=== PATIENT | female | born 1990 | race American Indian/Alaskan Native ===

== ENCOUNTER 2016-08-17 01:53 | Emergency (ER) | payer OTHER ==
[2016-08-17 03:00] LABS: Bacteria,Urine 1+ /HPF (Negative); Bilirubin,Urine NEG (Negative); Blood,Urine NEG (Negative); Ketones,Urine TR mg/dL (Negative); Leukocyte Esterase,Urine SM (Negative); Mucus,Urine 1+ /HPF; Nitrite,Urine NEG (Negative); Protein,Urine <15 mg/dL mg/dL (Negative); Urobilinogen,Urine < 2.0 mg/dL (<2.0)
--- NOTE | 2016-08-17 09:55 | Emergency Department Report ---
Chief Complaint: Abdominal Pain Stated Complaint: ABDOMINAL PAIN Time Seen by Provider: 08/17/16 09:53 - HPI History of Present Illness: Patient here complaining of lower abdominal pain that started yesterday. She denies any vaginal bleeding or discharge. Unknown if she is . Reports nausea without any vomiting. - ROS Review of Systems: All systems are Negative unless stated in HPI above - Exam Vital Signs: Vital Signs 08/17/16 08/17/16 02:28 06:12 Temperature 98.5 F 98.9 F Pulse Rate 89 79 Respiratory 20 18 Rate Blood Pressure 121/76 121/68 O2 Sat by Pulse 100 100 Oximetry Physical Exam: General: This is a 26-year-old female well-nourished well-developed that is nontoxic in appearance GI: Soft, nontender to palpate in all quadrants, no guarding or rebound tenderness. MSE screening note: Focused history and physical exam performed. Due to findings the following was ordered: ED Medical Decision Making - Medical Decision Making Medical decision making: Patient seen by provider in triage area. Appropriate protocol activated and patient to main ED to be seen by physician. ED Disposition for MSE Condition: Stable Instructions: Abdominal Pain (ED)
--- NOTE | 2016-08-17 11:14 | Ultrasound Report ---
TRANSABDOMINAL AND TRANSVAGINAL OBSTETRICAL ULTRASOUND:08/17/16 01:53:00 CLINICAL: Abdominal pain. LMP every 06/29/16 2 thousand seventeen FINDINGS: Transabdominal and transvaginal ultrasound demonstrated a single intrauterine gestational sac and living fetus. [place]-rump length measured 7.9 mm corresponding to a gestational age = 6 weeks, 5 days. heart rate = 121 beats/min. Normal appearance of the pole and yolk sac. Normal gestational sac. Closed cervix. No evidence of subchorionic hematoma or placental hematoma. No adnexal mass or free fluid. Normal ovaries with a dominant 2.1 cm follicle the left ovary. The right ovary measured 3.9 x 2.8 x 2.6cm. The left ovary measured 3.0 x 2.0 x 1.6cm. IMPRESSION: Single living intrauterine at 6 weeks, 5 days based on crown-rump length measurement. EDC based on ultrasound is 04/07/17. EDC based on LMP is 04/05/17.
[2016-08-17 13:29] VITALS: BP 124/74
[2016-08-17 13:40] LABS: Anion Gap 19 mmol/L; Blood Urea Nitrogen 5 mg/dL (7-17); Calcium 8.9 mg/dL (8.4-10.2); Carbon Dioxide 22 mmol/L (22-30); Glucose 131 mg/dL (65-100); Potassium 4.1 mmol/L (3.6-5.0); Sodium 134 mmol/L (137-145)
--- NOTE | 2016-08-17 19:51 | Emergency Department Report ---
Entered by KYLE HERNANDEZ, acting as scribe for YVONNE GATES PA. ED Abdominal Pain HPI - General Chief Complaint: Abdominal Pain Stated Complaint: ABDOMINAL PAIN Time Seen by Provider: 08/17/16 09:53 Source: patient Mode of arrival: Ambulatory Limitations: No Limitations - History of Present Illness Initial Comments: 26 year old A0 presents to the ED for evauatlion of cramping, non-radiating lower abdominal pain that began yesterday.She reports associated nausea and constipation but denies vomiting and diarrhea. She reports normal fluid intake but decreased appetite due to nausea. Deneis vaginal bleeding, vaginal discharge , urinary symptoms. Patient states she has no concern for STI's. MD Complaint: abdominal pain Onset/Timin -: days(s) Location: suprapubic Radiation: none Migration to: no migration Severity: moderate Severity scale (0 -10): 6 Quality: cramping Consistency: constant Improves With: nothing Worsens With: nothing Associated Symptoms: nausea, constipation. denies: vomiting, diarrhea, fever, chills, dysuria, hematuria, other (vaginal discharge, vaginal bleeding, concern for STI's) - Related Data LMP Date: 07/23/16 Previous Rx's Medication Instructions Recorded Last Taken Type Nitrofurantoin [place]/M-Cryst 100 mg PO Q12HR #14 capsule 08/17/16 Unknown Rx [Macrobid CAP] Allergies Allergy/AdvReac Type Severity Reaction Status Date / Time iodine Allergy Angioedema Verified 08/17/16 02:28 shellfish derived Allergy Angioedema Verified 08/17/16 02:28 ED Review of Systems Comment: All other systems reviewed and negative Constitutional: denies: chills, fever ENT: denies: throat pain Respiratory: no symptoms reported Cardiovascular: denies: chest pain, palpitations, edema, syncope Gastrointestinal: abdominal pain (suprapubic), constipation. denies: nausea, vomiting, diarrhea Genitourinary: denies: urgency, dysuria, frequency, hematuria, discharge, other (vaginal bleeding) Musculoskeletal: denies: back pain, arthralgia Skin: denies: rash Neurological: denies: headache, numbness, paresthesias, confusion, abnormal gait , vertigo ED Past Medical Hx - Past Medical History Previous Medical History?: No - Surgical History Past Surgical History?: No - Family History Family history: no significant - Social History Smoking Status: Never Smoker Substance Use Type: None - Medications Home Medications: Home Medications Medication Instructions Recorded Confirmed Last Taken Type Nitrofurantoin [place]/M-Cryst 100 mg PO Q12HR #14 capsule 08/17/16 Unknown Rx [Macrobid CAP] ED Physical Exam - General Limitations: No Limitations General appearance: alert, in no apparent distress - Head Head exam: Present: atraumatic, normocephalic, normal inspection - Eye Eye exam: Present: normal appearance, PERRL, EOMI. Absent: periorbital swelling , periorbital tenderness Pupils: Present: normal accommodation - ENT ENT exam: Present: normal exam, normal orophraynx, mucous membranes moist, normal external ear exam - Neck Neck exam: Present: normal inspection, full ROM. Absent: tenderness, lymphadenopathy, thyromegaly - Respiratory Respiratory exam: Present: normal lung sounds bilaterally. Absent: respiratory distress, wheezes, rales, rhonchi, chest wall tenderness - Cardiovascular Cardiovascular Exam: Present: regular rate, normal rhythm, normal heart sounds. Absent: systolic murmur, diastolic murmur, rubs, gallop - GI/Abdominal GI/Abdominal exam: Present: soft, normal bowel sounds. Absent: distended, tenderness, guarding, rebound, rigid - External exam: Present: normal external exam. Absent: erythema, swelling, lesions, lacerations, ecchymosis, bleeding Speculum exam: Present: cervical discharge (small amount of non-odorous discharge). Absent: erythema, vaginal discharge, vaginal bleeding, foreign body , tissue, laceration Bi-manual exam: Present: normal bi-manual exam. Absent: cervical motion tendernes, adnexal tenderness, adnexal mass, uterine enlargement, uterine tenderness - Expanded Exam Expanded Female exam: Absent: vaginal laceration, tissue present in vagina, herpetic lesions, vulvar erythema, vulvar tenderness, foreign body External exam: Present: normal. Absent: , bleeding Amniotic fluid: Present: none Speculum exam: Present: cervical OS closed. Absent: vaginal bleeding, vaginal discharge - Extremities Exam Extremities exam: Present: normal inspection, full ROM, normal capillary refill (capillary refill less than 2 seconds). Absent: tenderness, pedal edema, other (cyanosis, clubbing, or edema) - Back Exam Back exam: Present: normal inspection. Absent: full ROM, tenderness, CVA tenderness (R), CVA tenderness (L), muscle spasm, paraspinal tenderness, vertebral tenderness, rash noted - Neurological Exam Neurological exam: Present: alert, oriented X3, normal gait - Psychiatric Psychiatric exam: Present: normal affect, normal mood - Skin Skin exam: Present: warm, dry, intact, normal color. Absent: rash ED Course Vital Signs 08/17/16 08/17/16 08/17/16 02:28 06:12 13:15 Temperature 98.5 F 98.9 F Pulse Rate 89 79 86 Respiratory 20 18 16 Rate Blood Pressure 121/76 121/68 Blood Pressure 124/74 [Right] O2 Sat by Pulse 100 100 100 Oximetry - Reevaluation(s) Reevaluation #1: 08/17/16 13:00 Patient stable throughout ED course: ED Medical Decision Making - Lab Data Result diagrams: 08/17/16 10:02 Lab Results 08/17/16 08/17/16 08/17/16 Range/Units 10:02 10:02 Unknown HCG, Quant 60885 H (0-4) mIU/mL Urine Color Yellow (Yellow) Urine Turbidity Clear (Clear) Urine pH 6.0 (5.0-7.0) Ur Specific [place] 1.019 (1.003-1.030) Urine Protein <15 mg/dl (Negative) mg/dL Urine Glucose (UA) Neg (Negative) mg/dL Urine Ketones Tr (Negative) mg/dL Urine Blood Neg (Negative) Urine Nitrite Neg (Negative) Urine Bilirubin Neg (Negative) Urine Urobilinogen < 2.0 (<2.0) mg/dL Ur Leukocyte Esterase Sm (Negative) Urine WBC (Auto) 22.0 H (0.0-6.0) /HPF Urine RBC (Auto) 2.0 (0.0-6.0) /HPF U Epithel Cells (Auto) 3.0 (0-13.0) /HPF Urine Bacteria (Auto) 1+ (Negative) /HPF Urine Mucus 1+ /HPF Urine HCG, Qual Positive A (Negative) Blood Type A NEGATIVE Ord Rhogam Gestat Weeks <11 WEEKS Urine culture pending Wet prep pending. If positive it was determined by myself and patient that I' ll call medication in to her pharmacy. CHL pending BMP pending and will call patient will results later - Radiology Data Radiology results: report reviewed OB ultrasound report reveals patient with single living intrauterine at 6 weeks and 5 days based on crown-rump length measurement. X-ray did date of delivery with an ultrasound is 04/07/2017. No adnexal mass or free fluid. Normal ovaries. heart rate is at 121 bpm. Normal appearance of pole and yolk sac. Normal gestational sac. Closed cervix. No evidence of subchorionic hematoma or placental hematoma. - Medical Decision Making ED course: Patient with single live intrauterine that is normal. She is also with urinary tract infection. ED Disposition Clinical Impression: Intrauterine , incidental, Acute cystitis without hematuria Abdominal pain in Qualifiers: Trimester: first trimester Qualified Code(s): O26.891 - Other specified related conditions, first trimester; R10.9 - Unspecified abdominal pain Disposition: DISCHARGED TO HOME OR SELFCARE Is pt being admited?: No Does the pt Need Aspirin: No Condition: Stable Instructions: Urinary Tract Infection in Women (ED), Abdominal Pain (ED) Additional Instructions: Please started taking vitamin. Increase her fluid intake. Please take antibiotic to manage urinary tract infection. Her blood type is A- and you can decide [employer] and she will receive RhoGAM. Prescriptions: Nitrofurantoin [place]/M-Cryst [Macrobid CAP] 100 mg PO Q12HR #14 capsule Referrals: SVITLANA DAVIS MD [Primary Care Provider] - 2-3 Days SYLVIA CISSE MD [Staff Physician] - 2-3 Days Forms: Work/School Release Form(ED) This documentation as recorded by the MARY figueroa REBEKAH,accurately reflects the service I personally performed and the decisions made by me,YVONNE GATES PA.
== END 2016-08-17 13:17 | disposition home or self-care (01) ==
LOC: ED 01:53
DX: O23.11 Infections of bladder in pregnancy, first trimester (principal); N30.00 Acute cystitis without hematuria; Z91.013 Allergy to seafood; Z3A.01 Less than 8 weeks gestation of pregnancy
CPT/HCPCS: 36415; 76801; 76817; 80048; 81001; 81025; 84702; 86850; 86870; 86900; 86901; 87086; 87210; 87591

== ENCOUNTER 2016-08-22 21:34 | Emergency (ER) | payer OTHER ==
[2016-08-22] MEDS ORDERED: TYLENOL ONE (22:09)
[2016-08-22 22:12] LABS: Basophils % (Auto) 0.5 % (0.0-1.8); Eosinophils % (Auto) 0.7 % (0.0-4.3); Hematocrit 38.5 % (30.3-42.9); Hemoglobin 13.1 gm/dl (10.1-14.3); Mean Corpuscular HGB Conc 34 % (30-34); Mean Corpuscular Hemoglobin 31 pg (28-32); Mean Corpuscular Volume 90 fl (79-97); Platelet Count 188 K/mm3 (140-440); Red Cell Distribution Width 13.5 % (13.2-15.2); White Blood Count 7.2 K/mm3 (4.5-11.0)
[2016-08-22] MEDS ORDERED: TYLENOL PO ONE (22:17)
--- NOTE | 2016-08-23 01:49 | Ultrasound Report ---
FINAL REPORT PROCEDURE: US OB TRANSVAGINAL TECHNIQUE: Real-time transabdominal and transvaginal sonography of the uterus, placenta, amniotic fluid, adnexa, and fetus was performed with image documentation. Measurements were obtained to determine age/size. M-mode Doppler was used to document heartbeat. CPT 99596 and 41897 HISTORY: VAGINAL BLEED COMPARISON: No prior studies are available for comparison. FINDINGS: ADDITIONAL GESTATION: None. CRL: 11.1 mm, which corresponds to a gestational age of: 7 weeks, 2 days. Yolk Sac: Normal. Embryonic Cardiac Activity: 149 beats per minute Gestational Sac: There is a small subchorionic bleed Amniotic fluid: Normal. Cervix: Normal. Right Ovary: Small cysts measuring up to 18 millimeters Left Ovary: Not well visualized on this study. Estimated delivery date: 04/09/2017 Uterus and adnexa: As above IMPRESSION: 1. Single live intrauterine gestation at approximately 7 weeks, 2 days. 2. EDC by US 04/09/2017 3. Complete anatomic survey at 18-20 weeks suggested.
--- NOTE | 2016-08-23 01:50 | Ultrasound Report ---
FINAL REPORT PROCEDURE: US OB TRANSVAGINAL TECHNIQUE: Real-time transabdominal and transvaginal sonography of the uterus, placenta, amniotic fluid, adnexa, and fetus was performed with image documentation. Measurements were obtained to determine age/size. M-mode Doppler was used to document heartbeat. CPT 99620 and 77925 HISTORY: VAGINAL BLEED COMPARISON: No prior studies are available for comparison. FINDINGS: ADDITIONAL GESTATION: None. CRL: 11.1 mm, which corresponds to a gestational age of: 7 weeks, 2 days. Yolk Sac: Normal. Embryonic Cardiac Activity: 149 beats per minute Gestational Sac: There is a small subchorionic bleed Amniotic fluid: Normal. Cervix: Normal. Right Ovary: Small cysts measuring up to 18 millimeters Left Ovary: Not well visualized on this study. Estimated delivery date: 04/09/2017 Uterus and adnexa: As above IMPRESSION: 1. Single live intrauterine gestation at approximately 7 weeks, 2 days. 2. EDC by US 04/09/2017 3. Complete anatomic survey at 18-20 weeks suggested.
--- NOTE | 2016-08-23 02:04 | Emergency Department Report ---
ED Abdominal Pain HPI - General Chief Complaint: Vaginal Bleeding Stated Complaint: POSS MISCARRIAGE Time Seen by Provider: 08/23/16 01:44 Source: patient Mode of arrival: Ambulatory Limitations: No Limitations - History of Present Illness Initial Comments: Patient is a 26-year-old female with no past medical history, presenting with abdominal cramping and vaginal bleeding times one day. Patient reports she is approximately 6-7 weeks gestation, taking vitamins, has had no other care. Patient reports she was seen approximately one week ago for some cramping and had a live IUP on ultrasound. Patient reports the vaginal bleeding is new today. Patient also reports program with prior . Otherwise no fevers, chills, nausea, vomiting, diarrhea, shortness of breath, chest pain, trauma, falls, sick contacts, or travel MD Complaint: abdominal pain, other (vaginal bleeding) Severity scale (0 -10): 5 - Related Data Previous Rx's Medication Instructions Recorded Last Taken Type Nitrofurantoin [place]/M-Cryst 100 mg PO Q12HR #14 capsule 08/17/16 Unknown Rx [Macrobid CAP] Allergies Allergy/AdvReac Type Severity Reaction Status Date / Time iodine Allergy Angioedema Verified 08/17/16 02:28 shellfish derived Allergy Angioedema Verified 08/17/16 02:28 ED Review of Systems ROS: Stated complaint: POSS MISCARRIAGE Other details as noted in HPI Comment: All other systems reviewed and negative ED Past Medical Hx - Past Medical History Previous Medical History?: No Additional medical history: Heart Palpitations - Surgical History Past Surgical History?: No - Social History Smoking Status: Never Smoker Substance Use Type: None - Medications Home Medications: Home Medications Medication Instructions Recorded Confirmed Last Taken Type Nitrofurantoin [place]/M-Cryst 100 mg PO Q12HR #14 capsule 08/17/16 Unknown Rx [Macrobid CAP] ED Physical Exam - General Limitations: No Limitations General appearance: alert, in no apparent distress - Head Head exam: Present: atraumatic, normocephalic - Eye Eye exam: Present: normal appearance - ENT ENT exam: Present: mucous membranes moist - Neck Neck exam: Present: normal inspection - Respiratory Respiratory exam: Present: normal lung sounds bilaterally. Absent: respiratory distress - Cardiovascular Cardiovascular Exam: Present: regular rate, normal rhythm. Absent: systolic murmur, diastolic murmur, rubs, gallop - GI/Abdominal GI/Abdominal exam: Present: soft, normal bowel sounds - External exam: Present: normal external exam. Absent: erythema, swelling, lesions, lacerations Speculum exam: Present: vaginal bleeding. Absent: foreign body, tissue, laceration Bi-manual exam: Present: normal bi-manual exam, other (cervix finger tip open) - Extremities Exam Extremities exam: Present: normal inspection - Back Exam Back exam: Present: normal inspection - Neurological Exam Neurological exam: Present: alert, oriented X3 - Psychiatric Psychiatric exam: Present: normal affect, normal mood - Skin Skin exam: Present: warm, dry, intact, normal color. Absent: rash ED Course Vital Signs 08/22/16 08/23/16 21:39 00:08 Temperature 98.1 F 98.6 F Pulse Rate 104 H 84 Respiratory 20 18 Rate Blood Pressure 135/85 121/78 Blood Pressure 135/85 [Left] O2 Sat by Pulse 100 100 Oximetry ED Medical Decision Making - Lab Data Result diagrams: 08/22/16 22:01 - Radiology Data Radiology results: report reviewed Pelvic US: (+)IUP 7weeks 2 days ordered ED Rhogam Critical care attestation.: If time is entered above; I have spent that time in minutes in the direct care of this critically ill patient, excluding procedure time. ED Disposition Clinical Impression: Threatened Disposition: DISCHARGED TO HOME OR SELFCARE Is pt being admited?: No Condition: Stable Instructions: Threatened Miscarriage (ED) Additional Instructions: YOU MUST REPEAT US WITHIN 1 WEEK, REPEAT BHCG IN TWO DAYS Referrals: PRIMARY CARE [Primary Care Provider] - 3-5 Days
[2016-08-23 03:28] VITALS: BP 145/78
== END 2016-08-23 03:20 | disposition home or self-care (01) ==
LOC: ED 21:34
DX: O20.0 Threatened abortion (principal); Z3A.01 Less than 8 weeks gestation of pregnancy; Z91.013 Allergy to seafood; Z91.018 Allergy to other foods
CPT/HCPCS: 36415; 76801; 76817; 84702; 85025; 86850; 86870; 86900; 86901; 99284; J2790

== ENCOUNTER 2016-11-27 10:19 | Outpatient (CLI) | payer OTHER ==
--- NOTE | 2016-11-27 13:07 | Mammography Report ---
Diagnostic left mammogram and left whole breast ultrasound including all 4 quadrants and subareolar region. History: Palpable left breast lump in 26-year-old female. No prior studies. Findings: The parenchyma is of intermediate density, and there is no evidence of focal mass or architectural distortion. No suspicious calcifications are seen. Whole breast ultrasound demonstrates no evidence of cystic or solid masses. Impression: Negative left mammogram and whole breast ultrasound. BI-RADS code: 1. Recommendation: Routine screening schedule, ACS guidelines.
== END 2016-11-27 10:20 | disposition home or self-care (01) ==
LOC: SPVWC 10:19
PROVIDERS: ATTEND Family Medicine
DX: N63 Unspecified lump in breast (principal)
CPT/HCPCS: 76641; G0206

== ENCOUNTER 2017-04-18 18:33 | Emergency (ER) | payer OTHER ==
[2017-04-18] MEDS ORDERED: BENADRYL PO ONE (18:44)
[2017-04-18] MEDS ORDERED: PEPCID PO ONE (18:45)
[2017-04-18] MEDS ORDERED: ADRENALIN ONE (18:54)
[2017-04-18] MEDS ORDERED: ADRENALINE P/F SUB-Q ONE (19:00)
[2017-04-18 20:01] VITALS: BP 112/67
--- NOTE | 2017-04-18 20:22 | Emergency Department Report ---
HPI - General Chief Complaint: Allergic Reaction Time Seen by Provider: 04/18/17 18:40 - HPI HPI: Chief complaint is of difficulty breathing History of present illness this is a patient who does of seafood allergies shrimp allergy think she ate something at the restaurant that might have had shrimp in it she began to get tightness in her throat or shortness of breath and she was itchy she is here for evaluation she denies stridor denies drooling but is feeling itchy with tight throat ED Past Medical Hx - Past Medical History Previous Medical History?: Yes Additional medical history: Heart Palpitations - Surgical History Past Surgical History?: No - Social History Smoking Status: Never Smoker Substance Use Type: None - Medications Home Medications: Home Medications Medication Instructions Recorded Confirmed Last Taken Type Nitrofurantoin [place]/M-Cryst 100 mg PO Q12HR #14 capsule 08/17/16 Unknown Rx [Macrobid CAP] EPINEPHrine [Epipen] 0.3 mg IJ QDAY PRN #1 auto.injct 04/18/17 Unknown Rx ED Review of Systems ROS: Stated complaint: ALLERGIC REACTION Other details as noted in HPI Comment: All other systems reviewed and negative Constitutional: denies: diaphoresis, weakness Eyes: denies: eye pain ENT: denies: ear pain, dental pain Respiratory: see HPI, shortness of breath Physical Exam - Physical Exam Vital Signs: Vital Signs 04/18/17 04/18/17 04/18/17 18:37 20:00 20:03 Temperature 98.1 F 98.1 F Pulse Rate 143 H 101 H Respiratory 20 16 16 Rate Blood Pressure 138/93 Blood Pressure 112/67 [Left] O2 Sat by Pulse 100 99 99 Oximetry General: Physical exam vital signs were stable saturation was normal HEENT airway was clear no angioedema no stridor or drooling chest was clear to auscultation without retractions cardiac is S1-S2 without murmur abdomen was soft nontender extremities without clumsiness or edema neuro was nonfocal strength was equal psych was normal skin had no urticaria ED Course Vital Signs 04/18/17 04/18/17 04/18/17 18:37 20:00 20:03 Temperature 98.1 F 98.1 F Pulse Rate 143 H 101 H Respiratory 20 16 16 Rate Blood Pressure 138/93 Blood Pressure 112/67 [Left] O2 Sat by Pulse 100 99 99 Oximetry - Reevaluation(s) Reevaluation #1: 04/18/17 20:21 Patient had received L she was given subcutaneous epi Benadryl Solu-Medrol and Pepcid on arrival she was observed in the ED for an hour and a half with complete resolution of her itchiness tightness in the throat and shortness of breath she is therefore stable for outpatient follow-up ED Medical Decision Making - Medical Decision Making Patient is essentially symptom free and stable for outpatient follow-up she likely did have a reaction to seafood we will give her an EpiPen and have her follow-up with her regular doctor Critical care attestation.: If time is entered above; I have spent that time in minutes in the direct care of this critically ill patient, excluding procedure time. ED Disposition Clinical Impression: Allergic reaction Disposition: - TO HOME OR SELFCARE Is pt being admited?: No Does the pt Need Aspirin: No Condition: Stable Instructions: Food Allergy (ED), Urticaria (ED) Prescriptions: EPINEPHrine [Epipen] 0.3 mg IJ QDAY PRN #1 auto.injct PRN Reason: Shortness Of Breath Time of Disposition: 20:22
== END 2017-04-18 20:36 | disposition home or self-care (01) ==
LOC: ED 18:33
DX: T78.1XXA Other adverse food reactions, not elsewhere classified, initial encounter (principal); Z91.013 Allergy to seafood; Z91.041 Radiographic dye allergy status; X58.XXXA Exposure to other specified factors, initial encounter; Y93.89 Activity, other specified; Y99.8 Other external cause status; Y92.89 Other specified places as the place of occurrence of the external cause
CPT/HCPCS: 96372; 99283; J0171; J2930

== ENCOUNTER 2018-01-14 22:35 | Emergency (ER) | payer OTHER ==
[2018-01-14 23:35] LABS: Hematocrit 39.4 % (30.3-42.9); Hemoglobin 13.3 gm/dl (10.1-14.3); Mean Corpuscular HGB Conc 34 % (30-34); Mean Corpuscular Hemoglobin 30 pg (28-32); Mean Corpuscular Volume 90 fl (79-97); Platelet Count 200 K/mm3 (140-440); Red Blood Count 4.38 M/mm3 (3.65-5.03); Red Cell Distribution Width 13.4 % (13.2-15.2)
[2018-01-15] MEDS ORDERED: LOPRESSOR PO ONE
--- NOTE | 2018-01-15 00:04 | Emergency Department Report ---
ED General Adult HPI - General Chief complaint: Arrhythmia/Palpitations Stated complaint: PALP Time Seen by Provider: 01/14/18 23:44 Source: patient Mode of arrival: Ambulatory Limitations: No Limitations - History of Present Illness Initial comments: Ms. Anderson is pleasant 27 yo female who presents with heart racing sudden onset while leaving school. She is a nursing manager. She just felt her heart racing rapidly. Denies chest pain. Denies shortness of breath. Hx of irregular heart beat previously on Metoprolol now on Diltiazem. Recently started metformin 2 months ago for glucose intolerance and weight loss. Denies recent travel, leg pain or hx of OCPs. -: Sudden Improves with: none Worsens with: none - Related Data Previous Rx's Medication Instructions Recorded Last Taken Type Nitrofurantoin [place]/M-Cryst 100 mg PO Q12HR #14 capsule 08/17/16 Unknown Rx [Macrobid CAP] EPINEPHrine [Epipen] 0.3 mg IJ QDAY PRN #1 auto.injct 04/18/17 Unknown Rx Allergies Allergy/AdvReac Type Severity Reaction Status Date / Time iodine Allergy Angioedema Verified 08/17/16 02:28 shellfish derived Allergy Angioedema Verified 08/17/16 02:28 ED Review of Systems ROS: Stated complaint: PALP Other details as noted in HPI Comment: All other systems reviewed and negative Constitutional: denies: fever, malaise Cardiovascular: palpitations. denies: chest pain ED Past Medical Hx - Past Medical History Additional medical history: Heart Palpitations- with medication management 2014 - Family History Family history: CAD/UT (mother of heart attack age 47) - Social History Smoking Status: Never Smoker Substance Use Type: None - Medications Home Medications: Home Medications Medication Instructions Recorded Confirmed Last Taken Type Nitrofurantoin [place]/M-Cryst 100 mg PO Q12HR #14 capsule 08/17/16 Unknown Rx [Macrobid CAP] EPINEPHrine [Epipen] 0.3 mg IJ QDAY PRN #1 auto.injct 04/18/17 Unknown Rx ED Physical Exam - General Limitations: No Limitations General appearance: alert, in no apparent distress - Head Head exam: Present: atraumatic, normocephalic - Eye Eye exam: Present: normal appearance - ENT ENT exam: Present: mucous membranes moist - Neck Neck exam: Present: normal inspection. Absent: tenderness, meningismus - Respiratory Respiratory exam: Present: normal lung sounds bilaterally. Absent: respiratory distress, wheezes, rales, rhonchi - Cardiovascular Cardiovascular Exam: Present: regular rate, tachycardia, normal heart sounds. Absent: irregular rhythm, systolic murmur, diastolic murmur, rubs, gallop - GI/Abdominal GI/Abdominal exam: Present: soft, normal bowel sounds. Absent: distended, tenderness, guarding, rebound - Extremities Exam Extremities exam: Present: normal inspection - Back Exam Back exam: Present: normal inspection - Neurological Exam Neurological exam: Present: alert, oriented X3 - Psychiatric Psychiatric exam: Present: normal affect, normal mood - Skin Skin exam: Present: warm, dry, intact, normal color. Absent: rash ED Course Vital Signs 01/14/18 01/15/18 01/15/18 22:52 00:15 00:21 Temperature 98.7 F Pulse Rate 108 H 100 H 112 H Respiratory 20 13 Rate Blood Pressure 147/102 132/85 124/75 Blood Pressure [Left] O2 Sat by Pulse 99 Oximetry 01/15/18 01/15/18 01/15/18 00:30 00:33 00:58 Temperature Pulse Rate 100 H 83 Respiratory 23 16 16 Rate Blood Pressure 124/75 Blood Pressure 104/63 [Left] O2 Sat by Pulse 99 Oximetry ED Medical Decision Making - Lab Data Result diagrams: 01/14/18 23:14 - EKG Data -: EKG Interpreted by Me EKG shows normal: sinus rhythm, axis, intervals, QRS complexes, ST-T waves Rate: tachycardia - EKG Data Interpretation: no acute changes, normal EKG (except for tachycardia) - Medical Decision Making Ernestina presents with rapid heartbeat with sinus tachycardia. resolved with metoprolol. Ernestina desired minimal w/u. She desired rapid discharge. I have low suspicion for PE, so d-dimer was cancelled. dc'd home with return precautions and reassurance Critical care attestation.: If time is entered above; I have spent that time in minutes in the direct care of this critically ill patient, excluding procedure time. ED Disposition Clinical Impression: Palpitations Disposition: DC-01 TO HOME OR SELFCARE Is pt being admited?: No Does the pt Need Aspirin: No Condition: Stable Instructions: Palpitations (ED) Forms: Work/School Release Form(ED) Time of Disposition: 01:05
[2018-01-15 00:39] LABS: HCG Qualitative,Urine Negative (Negative)
[2018-01-15 00:42] LABS: Bacteria,Urine 1+ /HPF (Negative); Bilirubin,Urine NEG (Negative); Blood,Urine NEG (Negative); Color,Urine Yellow (Yellow); Mucus,Urine FEW /HPF
[2018-01-15 00:59] VITALS: BP 104/63
[2018-01-15 01:45] LABS: BUN/Creatinine Ratio 16; Blood Urea Nitrogen 11 mg/dL (7-17); Calcium 8.8 mg/dL (8.4-10.2); Hemolysis Index 30
== END 2018-01-15 01:19 | disposition home or self-care (01) ==
LOC: ED 22:35
DX: R00.2 Palpitations (principal); Z88.8 Allergy status to other drugs, medicaments and biological substances; Z91.013 Allergy to seafood
CPT/HCPCS: 36415; 80048; 81001; 81025; 83735; 85027; 93005; 93010; 99283